=== PATIENT | male | born 1970 | race Caucasian/White ===

== ENCOUNTER 2017-03-24 22:08 | Emergency (ER) | payer SELFPAY ==
[~2017-03-24] VITALS: Ht 172.7 cm; Wt 64.9 kg
[~2017-03-24 22:08] MED LIST: NAPR500T3 PO; TRAM50TA PO
[2017-03-24] MEDS ORDERED: IPRATRPIUM/ALBUTEROL 0.5/2.5MG 3 ML NEBU. ONE (22:30)
[2017-03-24 22:34] VITALS: BP 145/88
[2017-03-24 22:41] LABS: BASO # 0.1 x10^3/uL (0.0-0.2); BASO % 1 % (0-3); EOS # 0.5 x10^3/uL (0.0-0.7); EOS % 4 % (0-3); HEMATOCRIT 39.6 % (39.0-53.0); HEMOGLOBIN 13.6 g/dL (13.0-17.5); LYMPH # 1.8 x10^3/uL (1.0-4.8); LYMPH % 15 % (24-48); MEAN CORPUSCULAR HEMOGLOBIN 31 pg (25-35); MEAN CORPUSCULAR HGB CONC 34 g/dL (31-37); MEAN CORPUSCULAR VOLUME 90 fL (79-100); MONO % 9 % (0-9); NEUT # 8.1 x10^3uL (1.8-7.7); NEUT % 71 % (31-73); PLATELET COUNT 261 x10^3/uL (140-400); RED BLOOD COUNT 4.41 x10^6/uL (4.30-5.70); RED CELL DISTRIBUTION WIDTH 14.2 % (11.5-14.5); WHITE BLOOD COUNT 11.5 x10^3/uL (4.0-11.0)
[2017-03-24] MEDS ORDERED: CONTRAST GIVEN MC PRN (22:45)
--- NOTE | 2017-03-24 22:47 | EKG ---
[address] [address] Test Date: 2017-03-24 Test Time: 22:45:48 Pat Name: CHAVA CHAVIS Department: Room: Gender: M Subscription Crew Leader: : 1970 Requested By: EVELIN GARCIA Order Number: [id number] Reading MD: Javan Cordero Measurements Intervals [place] Rate: 106 P: 90 NM: 124 QRS: 48 QRSD: 80 T: 43 QT: 332 QTc: 443 Interpretive Statements SINUS TACHYCARDIA Electronically Signed On 03-27-2017 14:56:12 CDT by Javan Cordero
[2017-03-24 22:58] LABS: ALBUMIN/GLOBULIN RATIO 0.7 (1.0-1.7); CALCIUM 8.8 mg/dL (8.5-10.1); CREATININE 0.9 mg/dL (0.7-1.3); GFR 91.7; POTASSIUM 4.1 mmol/L (3.5-5.1); TOTAL BILIRUBIN 0.4 mg/dL (0.2-1.0); TOTAL PROTEIN 7.5 g/dL (6.4-8.2)
[2017-03-24] MEDS ORDERED: IOHEXOL 300 MG/ML 75 ML VIAL. IV ONE (23:00)
[2017-03-24] MEDS ORDERED: methylPREDNISolone SOD SUCC PF 125 MG/2 ML VIAL. IV ONE (23:00)
[2017-03-24] MEDS ORDERED: IPRATRPIUM/ALBUTEROL 0.5/2.5MG 3 ML NEBU. NEB ONE (23:00)
--- NOTE | 2017-03-24 23:28 | RAD ---
CT angiogram of the chest with contrast Indication: Chest pain and shortness of air with cough and congestion. Axial imaging through the chest was performed after the administration of intravenous contrast and utilizing the CT angiography protocol. Multiplanar, 3D and mip reformations were also performed. PQRS STATEMENT One or more of the following individualized dose reduction techniques were utilized for this study: 1.Automated exposure control. 2.Adjustment of the mA and/orkVaccording to patient size. 3.Use of iterative reconstruction technique. No prior studies are available for comparison. Significant abnormal appearance of the chest is identified. Evaluation of the pulmonary arterial system does show occasional small filling defects within distal pulmonary arterial branches, in particular right lower lobe subsegmental branches as well as left lower lobe subsegmental branches. The main pulmonary arteries are unremarkable. The aorta is normal caliber. No dissection is seen. There is a large pericardial effusion. There are also moderate bilateral pleural effusions, larger on the left. There is abnormal soft tissue identified in the anterior mediastinum. Anterior mediastinum is infiltrated. Abnormal density measures 4.4 centimeters transverse by 3.3 centimeters AP. There is also abnormal perihilar density and peribronchial interstitial thickening surrounding the central airways. There is a large area of marked consolidation or mass in the right lower lobe measuring 9.6 centimeters AP by 5.7 centimeters transverse. Diffuse interlobular septal thickening is identified. The upper abdomen is unremarkable. Impression: - Findings consistent with bilateral subsegmental pulmonary arterial emboli. - Large pericardial effusion and moderate bilateral pleural effusions. - Abnormal masslike infiltration involving the anterior mediastinum. There is also significant perihilar abnormal parenchymal density with associated peribronchial interstitial thickening. There is a large masslike consolidation in the right lower lobe. While this could be infectious or inflammatory, neoplastic process cannot be excluded. Close follow-up after course of therapy is recommended. Electronically signed by: Kevon Sanford MD (March 24, 2017 23:26:34)
[2017-03-25] MEDS ORDERED: HEPARIN 25,000UTS/500ML PREMIX 500 ML IV PRN
[2017-03-25] MEDS ORDERED: VANCOMYCIN PER PHARMACY MC PRN
[2017-03-25] MEDS ORDERED: HEPARIN for IV BOLUS 10,000 UNIT/10 ML VIAL. IV PRN ×2
[2017-03-25] MEDS ORDERED: PIPERACILLIN/TAZOBACTAM 3.375 GM in IV NORMAL SALINE 50ML 50 ML IV ONE ×2
[2017-03-25] MEDS ORDERED: IV NORMAL SALINE 1,000ML 1,000 ML IV SCH (00:14)
--- NOTE | 2017-03-25 00:14 | PHYS DOC ---
Past History Past Medical History: No Pertinent History Past Surgical History: Other Alcohol Use: Sober Drug Use: None Adult General Chief Complaint Chief Complaint: DYSPNEA/RESPIRATOY DISTRESS HPI HPI Patient is a 46-year-old gentleman with no significant past medical history who presents here today secondary to shortness of breath, cough, hemoptysis, generalized malaise, some weight loss, no night sweats, also been going on for about 3 weeks now. Patient reports his shortness of breath (slightly getting worse. Patient also reports she's had left lower 70s edema. Patient reports tactile fevers at home. Patient denies any nausea vomiting or diarrhea. Patient reports pleuritic type chest pain intermittently. Patient is currently chest pain-free. Patient reports he is short of breath. Patient's pulse ox in the ER was 92% upon arrival. Patient reports she's had a productive cough with some yellow green and bloody sputum. Patient reports decreased appetite and early satiety. Patient also complaining of swollen hard lymph node to his left supraclavicular region. Patient denies any melena or bright blood per rectum. Patient denies a dysuria frequency or urgency. Patient's physical exam was significant for wheezing bilaterally in his lungs. Patient has diminished breath sounds throughout. Patient is tender left supraclavicular lymphadenopathy. Patient's heart was tachycardic at 105. Patient 's pulse ox was 92%. No rubs were appreciated. Patient has 2+ tender pitting left lower extremity edema. Patient's right lower extremities normal. Patient's ER workup was significant for normal labs except for markedly elevated d-dimer. Patient's BNP and troponin were within normal limits. Patient' s CBC and chemistry were also within normal limits. Patient had a CTA of his thorax which revealed 1#. Bilateral subsegmental pulmonary arterial emboli. #2 large pericardial effusion and moderate bilateral pleural effusions. #3 abnormal masslike infiltration involving the anterior mediastinum. There is also significant perihilar abnormal parenchymal densities with associated peribronchial interstitial thickening. There is a large masslike consolidation in the right lower lobe. This could be infectious inflammatory or neoplastic. I discussed the case with Dr. Dill who has requested that we transfer the patient to [facility] for further evaluation. He feels that we will not be able to appropriately care for this patient here at [facility]. I discussed the case with Dr. Morse who is agreed to accept the patient in transfer. Given the patient's large pericardial effusion and his bilateral pulmonary emboli and the masses in his chest which may be infectious versus tumors I feel the patient needs a higher level of care. I discussed this with the patient and he is in agreement with transfer to [facility] for further evaluation treatment and management. Review of Systems Review of Systems Constitutional: Tactile fevers. Eyes: Denies change in visual acuity, redness, or eye pain [] HENT: Denies nasal congestion or sore throat [] Respiratory:+ cough or shortness of breath [] Cardiovascular: No additional information not addressed in HPI [] GI: Denies abdominal pain, nausea, vomiting, bloody stools or diarrhea [] : Denies dysuria or hematuria [] Musculoskeletal: Denies back pain or joint pain [] Integument: Denies rash or skin lesions [] Neurologic: Denies headache, focal weakness or sensory changes [] Endocrine: Denies polyuria or polydipsia [] Current Medications Current Medications Current Medications Medications (Trade) Dose Ordered Sig/Maia Start Time Stop Time Status Last Admin Dose Admin Albuterol/ Ipratropium (Duoneb) 3 ml 1X ONCE 03/24/17 23:00 03/24/17 23:01 DC 03/24/17 22:40 3 ML Heparin Sodium (Porcine) 1,000 unit PRN Q6HRS PRN 03/25/17 00:00 UNV Heparin Sodium/ Dextrose 500 ml @ 0 mls/hr CONT PRN 03/25/17 00:00 UNV Info (Do NOT chart on this entry -- for MONITORING) 1 each PRN DAILY PRN 03/24/17 22:45 03/26/17 22:44 Iohexol (Omnipaque 300 Mg/ml) 75 ml 1X ONCE 03/24/17 23:00 03/24/17 23:01 DC 03/24/17 23:04 75 ML Methylprednisolone Sodium Succinate (Solu-Medrol 125mg Vial) 125 mg 1X ONCE 03/24/17 23:00 03/24/17 23:01 DC 03/24/17 22:42 125 MG Piperacillin Sod/ Tazobactam Sod 3.375 gm/Sodium Chloride 50 ml @ 100 mls/hr 1X ONCE 03/25/17 00:00 03/25/17 00:29 Vancomycin HCl (Vanco Per Pharmacy) 1 each PRN DAILY PRN 03/25/17 00:00 Vancomycin HCl 1.75 gm/Sodium Chloride 500 ml @ 250 mls/hr 1X ONCE 03/25/17 00:30 03/25/17 02:29 Allergies Allergies Allergies Coded Allergies Type Severity Reaction Last Updated Verified No Known Drug Allergies 03/24/17 No Physical Exam Physical Exam Constitutional: Well developed, well nourished, appears tachypneic and short of breath.] HENT: Normocephalic, atraumatic, bilateral external ears normal, oropharynx moist, no oral exudates, nose normal. [] Eyes: PERRLA, EOMI, conjunctiva normal, no discharge. [] Neck: Normal range of motion, no tenderness, supple, no stridor. Patient was hard non-mobile tender left supraclavicular lymphadenopathy. [] Cardiovascular:Heart rate regular rhythm, tachycardic. Lungs & Thorax: Diminished breath sounds throughout. Abdomen: Bowel sounds normal, soft, no tenderness, no masses, no pulsatile masses. [] Skin: Warm, dry, no erythema, no rash. [] Back: No tenderness, no CVA tenderness. [] Extremities: No tenderness, no cyanosis, no clubbing, ROM intact, no edema. [] Neurologic: Alert and oriented X 3, normal motor function, normal sensory function, no focal deficits noted. [] Psychologic: Affect normal, judgement normal, mood normal. [] Current Patient Data Vital Signs Laboratory Tests Test 03/24/17 22:25 White Blood Count 11.5 x10^3/uL Red Blood Count 4.41 x10^6/uL Hemoglobin 13.6 g/dL Hematocrit 39.6 % Mean Corpuscular Volume 90 fL Mean Corpuscular Hemoglobin 31 pg Mean Corpuscular Hemoglobin Concent 34 g/dL Red Cell Distribution Width 14.2 % Platelet Count 261 x10^3/uL Neutrophils (%) (Auto) 71 % Lymphocytes (%) (Auto) 15 % Monocytes (%) (Auto) 9 % Eosinophils (%) (Auto) 4 % Basophils (%) (Auto) 1 % Neutrophils # (Auto) 8.1 x10^3uL Lymphocytes # (Auto) 1.8 x10^3/uL Monocytes # (Auto) 1.0 x10^3/uL Eosinophils # (Auto) 0.5 x10^3/uL Basophils # (Auto) 0.1 x10^3/uL D-Dimer (Beatris) > 19.00 mg/L Sodium Level 136 mmol/L Potassium Level 4.1 mmol/L Chloride Level 100 mmol/L Carbon Dioxide Level 25 mmol/L Anion Gap 11 Blood Urea Nitrogen 18 mg/dL Creatinine 0.9 mg/dL Estimated GFR (Cockcroft-Gault) 91.7 BUN/Creatinine Ratio 20 Glucose Level 109 mg/dL Calcium Level 8.8 mg/dL Total Bilirubin 0.4 mg/dL Aspartate Amino Transf (AST/SGOT) 27 U/L Alanine Aminotransferase (ALT/SGPT) 19 U/L Alkaline Phosphatase 208 U/L Troponin I Quantitative < 0.017 ng/mL NQ-Xea-R-Type Natriuretic Peptide 70 pg/mL Total Protein 7.5 g/dL Albumin 3.0 g/dL Albumin/Globulin Ratio 0.7 Current Medications Medications (Trade) Dose Ordered Sig/Maia Route PRN Reason Start Time Stop Time Status Last Admin Dose Admin Albuterol/ Ipratropium (Duoneb) 3 ml STK-MED ONCE .ROUTE 03/24/17 22:30 03/24/17 22:31 DC Albuterol/ Ipratropium (Duoneb) 3 ml 1X ONCE NEB 03/24/17 23:00 03/24/17 23:01 DC 03/24/17 22:40 3 ML Methylprednisolone Sodium Succinate (Solu-Medrol 125mg Vial) 125 mg 1X ONCE IV 03/24/17 23:00 03/24/17 23:01 DC 03/24/17 22:42 125 MG Iohexol (Omnipaque 300 Mg/ml) 75 ml 1X ONCE IV 03/24/17 23:00 03/24/17 23:01 DC 03/24/17 23:04 75 ML Info (Do NOT chart on this entry -- for MONITORING) 1 each PRN DAILY PRN MC SEE COMMENTS 03/24/17 22:45 03/26/17 22:44 Piperacillin Sod/ Tazobactam Sod 3.375 gm/Sodium Chloride 50 ml @ 100 mls/hr 1X ONCE IV 03/25/17 00:00 03/25/17 00:29 Vancomycin HCl (Vanco Per Pharmacy) 1 each PRN DAILY PRN MC SEE COMMENTS 03/25/17 00:00 Heparin Sodium/ Dextrose 500 ml @ 0 mls/hr CONT PRN IV SEE I/O RECORD 03/25/17 00:00 UNV Heparin Sodium (Porcine) 4,875 unit 1X ONCE IV 03/25/17 00:00 03/25/17 00:01 UNV Heparin Sodium (Porcine) 2,000 unit PRN Q6HRS PRN IV FOLLOW PROTOCOL GUIDELINES 03/25/17 00:00 UNV Heparin Sodium (Porcine) 1,000 unit PRN Q6HRS PRN IV FOLLOW PROTOCOL GUIDELINES 03/25/17 00:00 UNV Vancomycin HCl 1.75 gm/Sodium Chloride 500 ml @ 250 mls/hr 1X ONCE IV 03/25/17 00:30 03/25/17 02:29 Vital Signs Date Time Temp Pulse Resp B/P (MAP) Pulse Ox O2 Delivery O2 Flow Rate FiO2 03/24/17 23:39 92 Room Air 03/24/17 23:16 108 03/24/17 22:34 98.1 20 Lab Results Laboratory Tests Test 03/24/17 22:25 White Blood Count 11.5 x10^3/uL (4.0-11.0) H Red Blood Count 4.41 x10^6/uL (4.30-5.70) Hemoglobin 13.6 g/dL (13.0-17.5) Hematocrit 39.6 % (39.0-53.0) Mean Corpuscular Volume 90 fL (79-100) Mean Corpuscular Hemoglobin 31 pg (25-35) Mean Corpuscular Hemoglobin Concent 34 g/dL (31-37) Red Cell Distribution Width 14.2 % (11.5-14.5) Platelet Count 261 x10^3/uL (140-400) Neutrophils (%) (Auto) 71 % (31-73) Lymphocytes (%) (Auto) 15 % (24-48) L Monocytes (%) (Auto) 9 % (0-9) Eosinophils (%) (Auto) 4 % (0-3) H Basophils (%) (Auto) 1 % (0-3) Neutrophils # (Auto) 8.1 x10^3uL (1.8-7.7) H Lymphocytes # (Auto) 1.8 x10^3/uL (1.0-4.8) Monocytes # (Auto) 1.0 x10^3/uL (0.0-1.1) Eosinophils # (Auto) 0.5 x10^3/uL (0.0-0.7) Basophils # (Auto) 0.1 x10^3/uL (0.0-0.2) D-Dimer (Beatris) > 19.00 mg/L (0.00-0.50) H Sodium Level 136 mmol/L (136-145) Potassium Level 4.1 mmol/L (3.5-5.1) Chloride Level 100 mmol/L (98-107) Carbon Dioxide Level 25 mmol/L (21-32) Anion Gap 11 (6-14) Blood Urea Nitrogen 18 mg/dL (8-26) Creatinine 0.9 mg/dL (0.7-1.3) Estimated GFR (Cockcroft-Gault) 91.7 BUN/Creatinine Ratio 20 (6-20) Glucose Level 109 mg/dL (70-99) H Calcium Level 8.8 mg/dL (8.5-10.1) Total Bilirubin 0.4 mg/dL (0.2-1.0) Aspartate Amino Transferase (AST) 27 U/L (15-37) Alanine Aminotransferase (ALT) 19 U/L (16-63) Alkaline Phosphatase 208 U/L (46-116) H Troponin I Quantitative < 0.017 ng/mL (0-0.055) NU-Cvm-D-Type Natriuretic Peptide 70 pg/mL (0-124) Total Protein 7.5 g/dL (6.4-8.2) Albumin 3.0 g/dL (3.4-5.0) L Albumin/Globulin Ratio 0.7 (1.0-1.7) L EKG EKG [] Radiology/Procedures Radiology/Procedures [] EKG revealed normal sinus rhythm with nonspecific ST-T wave abnormalities. No evidence of ST elevation FL. 2. Interpreted By Dr. Guadarrama. Course & Med Decision Making Course & Med Decision Making Pertinent Labs and Imaging studies reviewed. (See chart for details) [] Dragon Disclaimer Dragon Disclaimer This chart was dictated in whole or in part using Voice Recognition software in a busy, high-work load, and often noisy Emergency Department environment. It may contain unintended and wholly unrecognized errors or omissions. Departure Departure: Impression: Primary Impression: Pericardial effusion without cardiac tamponade Additional Impressions: Pulmonary embolism Pulmonary mass Pulmonary infiltrate Disposition: ADMITTED INPATIENT Admitting Physician: Other ([place]) Condition: GUARDED Referrals: PCP,NO (PCP) Problem Qualifiers Additional Impressions: Pulmonary embolism Pulmonary embolism type: other Chronicity: acute Acute cor pulmonale presence: without acute cor pulmonale Qualified Codes: I26.99 - Other pulmonary embolism without acute cor pulmonale EVELIN GARCIA MD March 25, 2017 00:14
[2017-03-25] MEDS ORDERED: HEPARIN for IV BOLUS 10,000 UNIT/10 ML VIAL. IV ONE (00:15)
[2017-03-25] MEDS ORDERED: MORPHINE SULFATE 2 MG/ML DISP.SYRIN. IV PRN (00:15)
[2017-03-25] MEDS ORDERED: ACETAMINOPHEN 325 MG TABLET PO PRN (00:15)
[2017-03-25] MEDS ORDERED: ONDANSETRON PF 4 MG/2 ML VIAL. IV PRN (00:15)
[2017-03-25] MEDS ORDERED: VANCOMYCIN 1.75 GM in IV NORMAL SALINE 500ML 500 ML IV ONE (00:30)
[2017-03-25] MEDS ORDERED: IV NORMAL SALINE 50ML 50 ML ONE (00:32)
[2017-03-25] MEDS ORDERED: PIPERACILLIN/TAZOBACTAM 3.375 GM VIAL IV ONE (00:32)
[2017-03-25] MEDS ORDERED: IV NORMAL SALINE 500ML 0 ML ONE (01:06)
[2017-03-25] MEDS ORDERED: VANCOMYCIN 1 GM VIAL. ONE ×3 (01:06→01:12)
[2017-03-25] MEDS ORDERED: IV NORMAL SALINE 500ML 500 ML ONE ×2 (01:08→01:12)
--- NOTE | 2017-03-25 08:21 | RAD ---
Examination: 2 views of the chest History: History of chest pain, shortness of breath Comparison: None available Findings: The cardiomediastinal silhouette grossly appears unremarkable. Faint patchy airspace opacities identified bilaterally likely atelectasis or infiltrates. Impression: Faint patchy airspace opacities identified in the bilateral lungs likely atelectasis or infiltrates. Follow-up to resolution.
== END 2017-03-25 01:30 | disposition other institution (70) ==
LOC: ER 22:08
DX: I31.3 Pericardial effusion (noninflammatory) (principal); I26.99 Other pulmonary embolism without acute cor pulmonale; R91.8 Other nonspecific abnormal finding of lung field; J90 Pleural effusion, not elsewhere classified
CPT/HCPCS: 36415; 71020; 71275; 80053; 83605; 83880; 84484; 85027; 85379; 85610; 85730; 87040; 93005; 94640; 96365; 96368; 96375; 99285; J1644; J2270; J2405; J2543; J2930; J3370; J7040; J7620; Q9967